=== PATIENT | female | born 1960 | race Caucasian/White ===

== ENCOUNTER 2020-07-25 11:25 | Emergency (ER) | payer MEDICARE ==
[~2020-07-25] VITALS: Ht 162.6 cm; Wt 110.0 kg
[2020-07-25 13:20] VITALS: BP 132/69
== END 2020-07-25 16:56 | disposition home or self-care (01) ==
LOC: ER 12:09
DX: R51.9 Headache, unspecified (principal); R11.2 Nausea with vomiting, unspecified; R42 Dizziness and giddiness
CPT/HCPCS: 73030; 73060; 93005; 99285